=== PATIENT | male | born 1960 | race Caucasian/White ===

== ENCOUNTER 2024-12-18 08:21 | Day surgery (SDC) | payer MEDICARE, OTHER, SELFPAY ==
--- NOTE | 2024-12-18 | PATH_ITS ---
[facility] Accession Number: [id number] No. of containers..02 Tissue . 01 Material submitted: . PART A: colon - COLON, DESCENDING POLYP PART B: colon - SIGMOID POLYP . 01 Diagnosis: A: DESENDING COLON, POLYPECTOMY: Hyperplastic polyp. - B: SIGMOID COLON, POLYPECTOMY: Hyperplastic polyp. [facility] 12/26/2024 1233 Local . 01 Electronically signed: . Lizzie Robledo MD, Pathologist NPI- [id number] . 01 Gross description: . A. Received in formalin with two identifiers and 1. Descending colon polyp. The specimen consists of one king-brown soft tissue fragment measuring 0.4 x 0.4 x 0.3 cm. The specimen is entirely submitted in cassette A1. B. Received in formalin with two identifiers and 2. Sigmoid polyp. The specimen consists of two king-brown soft tissue fragments measuring 0.6 x 0.4 x 0.3 cm and 0.5 x 0.4 x 0.4 cm. The specimen is entirely submitted in cassette B1. ([id number]) /MRV 12/25/2024 1437 Local . 01 Pathologist provided ICD-10: Z12.11 . 01 CPT . 914097, 908120 Specimen Comment: A courtesy copy of this report has been sent to [facility] Pathology Performed at: [address] [id number] MD Loi Petersen MD Phone: [phone]
[2024-12-18 08:44] VITALS: BP 134/76; PULSE 67; RESP 16; TEMP 36.6; O2SAT 100; BMI 23.0
[2024-12-18] MEDS: LACTATED RINGERS 1,000 ML 42 ML IV (08:58)
--- NOTE | 2024-12-18 09:34 | PM.HP.IH.1 ---
History of Present Illness History of Present Illness Date Patient Seen: 12/18/24 Time Patient Seen: 09:34 Chief complaint: Colonoscopy Narrative: 64yo M, presents for screening colonoscopy today. Had prior colonoscopy 3 yrs ago in [place] where two polyps were removed. FH negative for colon cancer. [facility] Surgical History (Updated 10/08/24 @ 10:52 by Pratibha Leblanc MD) History of nasal surgery Social History Smoking Status: Never smoker alcohol intake: current Meds Home Medications and Allergies Home Medications ?Medication ?Instructions ?Recorded ?Confirmed ?Type tamsulosin 0.4 mg capsule 0.4 mg PO DAILY #90 caps 10/08/24 12/18/24 Rx Allergies Allergy/AdvReac Type Severity Reaction Status Date / Time No Known Drug Allergies Allergy Unverified 12/18/24 09:02 Exam Vital Signs (past 8 hours): - 12/18/24 08:44 Temperature 98 F Pulse Rate 67 Respiratory Rate 16 Blood Pressure 134/76 Pulse Oximetry 100 Oxygen Delivery Method Room Air Oxygen Delivery Method Room Air Const General: healthy appearing and comfortable Orientation: alert and oriented x3 Resp Effort & Inspection: normal respiratory effort and able to speak in complete sentences Cardio Rate: regular rate GI Palpation: soft (NT) Extrem General: no pedal edema and no calf tenderness Assessment & Plan Assessment and plan (1) Screening for colon cancer: Status: Acute Plan 64yo M presents for screening colonoscopy. The risks, benefits and options regarding the procedure were explained to the patient in detail. Risk discussion included but not limited to: bleeding, perforaiton, unable to reach cecum, missed lesion. The patient was encouraged to ask questions and they were answered to their satisfaction. The patient understands and is agreeable to proceed. Time-Based Coding :: [TOTAL MINUTES] spent with patient and on the chart (including review of chart, obtaining history, exam, reviewing outside data, placing orders, documenting exam and treatment plan, and counseling patient) on [DATE]. 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
--- NOTE | 2024-12-18 09:40 | PM.OP.COLON ---
Operative Date/Time/Diagnoses Date of procedure: 12/18/24 Time of procedure: 10:15 Pre-op diagnosis: H/O polyps Post-op diagnosis: other (polyps) Procedure & Clinicians Study performed: Screening colonoscopy with polypectomy Same procedure(s) as scheduled: Yes Indications: 64yo M, h/o polyps Surgeon: Victorino Harley Anesthesia Type: MAC +/- Procedure Notes SCOAP/Timeout: Performed Procedure in detail: Colonoscopy Patient placed in left lateral recumbent position. Time out was performed. Procedural sedation was administered by anesthesia. Examination began with a thorough inspection of the perianal area. There was no evidence of fissures, fistulae, external hemorrhoids or cutaneous malignancy. The colonoscope was then placed into the rectum and the lumen was insufflated with carbon dioxide. The scope was carefully advanced forward. Ultimately the cecum was intubated and confirmed by identification of the ileocecal valve, the appendiceal orifice and the confluence of the taenia. The scope was then slowly withdrawn examining the colon thoroughly in all directions. In the rectum, retroflexion of the scope was performed for inspection of the distal rectum and anal canal. ?Significant colonoscopy findings: ?1. Quality of the preparation-good, [place] 2-3, improved with irrigation/suction ?2. Two small sessile benign-appearing polyps, 3mm, one in descending, one in sigmoid, both removed with cold snare (descending) and cold biopdy (sigmoid) and retrieved for pathology Scope withdrawal time: 17 minutes Findings: polyp(s) Specimen(s): other (polyps) Complications: none Impression: Two benign appearing sessile polyps Likely plan next colonoscopy in 10 years unless pathology warrants different surveillance Post-procedure Recommendations: Colonoscopy in 5 years and Colonoscopy in 10 years Plan for aftercare: PACU then home Follow up: as needed Disposition: PACU
[2024-12-18 10:12] VITALS: BP 110/59; PULSE 69; RESP 16; TEMP 36.1; O2SAT 98
[2024-12-18 10:15] VITALS: BP 106/56; PULSE 52; RESP 16; O2SAT 98
[2024-12-18 10:20] VITALS: BP 113/63; PULSE 58; RESP 16; TEMP 36.1; O2SAT 98
[2024-12-18 10:31] VITALS: BP 114/65; PULSE 58; RESP 16; TEMP 36.7; O2SAT 95
== END 2024-12-18 10:34 | disposition home or self-care (01) ==
PROVIDERS: PCP Family Medicine; Referring Provider Family Medicine; Visit Provider Surgery
PROC: 0DJD8ZZ Inspection of Lower Intestinal Tract, Via Natural or Artificial Opening Endoscopic (ICD-10-PCS; CPT 45378; principal; 2024-12-18 09:45)
DX: Z12.11 Encounter for screening for malignant neoplasm of colon (principal); Z86.0100 Personal history of colon polyps, unspecified; N40.0 Benign prostatic hyperplasia without lower urinary tract symptoms; K63.5 Polyp of colon
CPT/HCPCS: 45385; J2704

== ENCOUNTER → 2024-12-31 08:40 | Outpatient (CLI) | payer MEDICARE, OTHER, SELFPAY ==
[2024-12-31 09:13] LABS: Add Manual Diff / Slide Review NO; Hematocrit 45.6 % (41-53); Hemoglobin 15.5 g/dL (13.5-17.5); Lymphocytes Absolute Auto 1600 /uL (1100-4500); Mean Corpuscular HGB Conc 34.0 % (30-36); Mean Corpuscular Hemoglobin 30.5 PG (26-34); Mean Corpuscular Volume 89.8 fL (80-100); Platelet Count 233 X10^3/uL (150-400)
[2024-12-31 09:26] LABS: Hemoglobin A1C% w Est Avg Glu 5.7 % (4.0-6.0)
[2024-12-31 09:32] LABS: Alanine Aminotransferase 23 IU/L (<50); Albumin 4.1 g/dL (3.5-5.0); Albumin Globulin Ratio 1.6 (1.0-2.8); Alkaline Phosphatase 68 U/L (38-126); Blood Urea Nitrogen 24 mg/dL (9-20); Calcium 9.0 mg/dL (8.4-10.2); Carbon Dioxide 24 mmol/L (22-32); Chloride 104 mmol/L (98-107); Cholesterol 139 mg/dL (140-199); Estimated Glomerular Filt Rate > 60 mL/min (>60); Globulin 2.5 g/dL (1.7-4.1); Glucose 109 mg/dL (70-99); HDL Cholesterol 53 mg/dL (40-60); HEMOLYSIS < 15 (0-50); Potassium 4.0 mmol/L (3.4-5.1); Sodium 136 mmol/L (137-145); Total Protein 6.6 g/dL (6.3-8.2); Triglycerides 66 mg/dL (35-150)
[2024-12-31 09:51] LABS: Free T3, Triiodothyronine Free 4.76 pg/mL (2.77-5.27)
[2024-12-31 10:05] LABS: Thyroid Stimulating Hormone 0.985 uIU/mL (0.47-4.68)
[2025-01-01 16:38] LABS: Anti Thyroglobulin Antibody <1.0 IU/mL (0.0-0.9)
== END ==
PROVIDERS: PCP Family Medicine; Referring Provider Family Medicine; Visit Provider Family Medicine
DX: E07.9 Disorder of thyroid, unspecified (principal); N40.0 Benign prostatic hyperplasia without lower urinary tract symptoms; Z12.5 Encounter for screening for malignant neoplasm of prostate; E04.1 Nontoxic single thyroid nodule; R25.1 Tremor, unspecified
CPT/HCPCS: 36415; 80053; 80061; 83036; 84439; 84443; 84481; 85025; 86376; 86800; G0103

== ENCOUNTER → 2025-01-25 13:38 | Outpatient (CLI) | payer MEDICARE, OTHER, SELFPAY ==
--- NOTE | 2025-01-25 | PATH_ITS ---
Note [facility] Accession Number: [id number] TESTS RESULT FLAG UNITS REF RANGE LAB Clinician Provided Cytology Information No. of containers..01 Other (Miscellaneous) No. of containers..08 Previously Prepared Cytology Slide Source: RIGHT THYROID NOD #1 DIAGNOSIS: RIGHT THYROID NOD #1 ATYPIA OF UNDETERMINED SIGNIFICANCE. [place] CATEGORY III. ATYPIA OF UNDETERMINED SIGNIFIANCE - NUCLEAR ATYPIA. MOLECULAR STUDIES PENDING; RESULTS WILL BE REPORTED SEPARATELY. COMMENT: This case was also reviewed by Dr. Zane Quijano (Julie), who agrees with the interpretation. Pathologist ICD10: 01 R89.6 Signed out by: Carmen Segundo MD, Pathologist NPI- [id number] Performed by: Efren Berger, Occasional Babysitter ([facility]) Gross description: 30 CC, PINK, HAZY RECEIVED IN FIXATIVE WHITE CAP CYTOLYT CONTAINER. RECEIVED 9 ALCOHOL FIXED SLIDES IN 3 GREEN CAP COFFINS. RECIEVED 9 STAINED FIXED SLIDES IN 3 COFFINS. RECIEVED 1 RNA VIAL. : 05-03-2026 GRANT /JES 01/28/2025 1222 Local FLAG LEGEND: L-Low Normal,H-High Normal,LL-Alert Low,HH-Alert High <-Panic Low,>-Panic High,A-Abnormal,AA-Critical Abnormal Performed at: 01 =Z [facility] [address] [address], [place] [address] Loi Petersen MD, Performed at: [address] [address], [place], [place] [id number] MD Loi Petersen MD Phone: [phone]
--- NOTE | 2025-01-25 13:40 | DI.US.S_ITS ---
PROCEDURE: US FINE NEEDLE ASPIRATION INDICATIONS: FNA of thyroid TECHNIQUE: The indications, alternatives, benefits, risks, and complications of the procedure were explained to the patient. Written informed consent was obtained and placed in the chart. The thyroid region was examined sonographically and a site was chosen for ultrasound guided percutaneous sampling. The skin was prepared and draped in the usual fashion, and anesthetized with 1% lidocaine infiltrated from the skin down to the thyroid gland. Multiple passes were then performed, with contents emptied into an appropriate pathology specimen container. A bandage was applied to the area of access at completion of the study. COMPARISON: None. FINDINGS: Location(s) of lesion(s) sampled: Lower pole right thyroid lobe nodule. [place]: 25 gauge hypodermic needles. Number of passes: 9 Medications: 1% lidocaine for local anaesthesia. Complications: None. IMPRESSION: Successful ultrasound-guided thyroid nodule fine needle aspiration, with cytology results pending. Please see chart below for management recommendations based on cytology results. [place] [facility] ReportingRecommendationsNon-diagnostic* Repeat US-guided FNA, with on-site cytology evaluation if possible. * Repeated non-diagnostic nodules without high suspicion US features: close observation vs surgical consult. * Consider surgery if nodule has high suspicion US features, grows >20% in 2 dimensions on followup, or patient has clinical risk factors for malignancy. Benign* If nodule has high suspicion US features: repeat US and FNA within 12 months. * If nodule has low to intermediate suspicion US features: repeat US at 12-24 months. If nodule grows (20% increase in at least 2 dimensions, with minimal increase of 2 mm or >50% change in volume), or development of new suspicious US features, then repeat FNA or continue followup. * If nodule has very low suspicion US features: followup US at >24 months. Atypia of undetermined significance, follicular lesion of undetermined significanceRepeat FNA, molecular testing, followup US, or surgical consult.Follicular neoplasm, suspicious for follicular neoplasmSurgical consult; also consider molecular testing. Suspicious for malignancySurgical consult.MalignantSurgical consult. Dictated by: Aaron Wilkerson M.D. on 01/25/2025 at 21:57 Approved by: Aaron Wilkerson M.D. on 01/25/2025 at 21:57
== END ==
LOC: US 13:39
PROVIDERS: PCP Family Medicine; Visit Provider Radiology Diagnostic Radiology
DX: E04.1 Nontoxic single thyroid nodule (principal)
CPT/HCPCS: 10005

== ENCOUNTER → 2025-03-13 07:56 | Outpatient (CLI) | payer MEDICARE, OTHER, SELFPAY ==
[2025-03-13 08:54] LABS: Alanine Aminotransferase 26 IU/L (<50); Albumin 4.4 g/dL (3.5-5.0); Albumin Globulin Ratio 1.8 (1.0-2.8); Alkaline Phosphatase 74 U/L (38-126); Blood Urea Nitrogen 21 mg/dL (9-20); Calcium 9.4 mg/dL (8.4-10.2); Carbon Dioxide 27 mmol/L (22-32); Chloride 103 mmol/L (98-107); Estimated Glomerular Filt Rate > 60 mL/min (>60); Globulin 2.5 g/dL (1.7-4.1); Glucose 106 mg/dL (70-99); HEMOLYSIS < 15 (0-50); Potassium 4.3 mmol/L (3.4-5.1); Sodium 139 mmol/L (137-145); Total Protein 6.9 g/dL (6.3-8.2)
== END ==
PROVIDERS: PCP Family Medicine; Referring Provider Family Medicine; Visit Provider Family Medicine
DX: R73.03 Prediabetes (principal); R17 Unspecified jaundice
CPT/HCPCS: 36415; 80053